=== PATIENT | male | born 2000 | race Caucasian/White ===

== ENCOUNTER 2024-09-30 23:28 | Emergency (ER) | payer OTHER ==
[~2024-09-30] VITALS: Ht 172.7 cm; Wt 73.0 kg
[2024-09-30 23:39] VITALS: O2SAT 98
[2024-10-01] MEDS: LIDOCAINE HCL/PF 1% 10 MG/ML 5ML VIAL INFIL ONE (01:15)
[2024-10-01] MEDS ORDERED: TETANUS, DIPHTHERIA, PERTUSSIS VAC/PF 0.5ML (>10YR OLD) IM ONE (01:15)
[2024-10-01] MEDS: IBUPROFEN 600MG TABLET PO ONE (02:34)
[2024-10-01] MEDS: BACITRACIN ZINC OINT UDPKT TOP ONE (02:34)
[2024-10-01] MEDS: TETANUS, DIPHTHERIA, PERTUSSIS VAC/PF 0.5ML (>10YR OLD) IM ONE (02:37)
[2024-10-01] MEDS ORDERED: CEPH500C2 MT (03:50)
[2024-10-01] MEDS ORDERED: IBUP-2029 MT (03:50)
[2024-10-01] MEDS ORDERED: BO1 TP (03:50)
[2024-10-01 03:54] VITALS: TEMP 36.4
[2024-10-01 04:36] VITALS: BP 111/64; PULSE 54; RESP 16; O2SAT 100
== END 2024-10-01 04:41 | disposition home or self-care (01) ==
LOC: ER 23:28
DX: S61.215A Laceration without foreign body of left ring finger without damage to nail, initial encounter (principal); Z91.52 Personal history of nonsuicidal self-harm; Z79.899 Other long term (current) drug therapy; W26.0XXA Contact with knife, initial encounter; Y93.89 Activity, other specified; Y92.89 Other specified places as the place of occurrence of the external cause; Y99.8 Other external cause status
CPT/HCPCS: 12001; 90471; 90715; 99283

== ENCOUNTER 2024-10-02 13:13 | Emergency (ER) | payer OTHER ==
[~2024-10-02] VITALS: Ht 167.6 cm; Wt 90.0 kg
[~2024-10-02 13:13] MED LIST: BO1 TP; CEPH500C2 MT; IBUP-2029 MT
[2024-10-02 13:22] VITALS: O2SAT 100
[2024-10-02 13:29] VITALS: BP 111/71; PULSE 68; RESP 18; TEMP 36.9; O2SAT 100
== END 2024-10-02 14:24 | disposition home or self-care (01) ==
LOC: ER 13:13
DX: S61.215D Laceration without foreign body of left ring finger without damage to nail, subsequent encounter (principal); Z48.00 Encounter for change or removal of nonsurgical wound dressing; X58.XXXD Exposure to other specified factors, subsequent encounter
CPT/HCPCS: 99282